=== PATIENT | female | born 1995 | race Caucasian/White ===

== ENCOUNTER → 2016-11-22 | Outpatient (CLI) | payer OTHER ==
--- NOTE | 2016-11-22 21:51 | REP ---
Clinical: Dating and viability. Technique: Transabdominal first trimester obstetrical ultrasound with color Doppler evaluation Findings: Single live early intrauterine is appreciated. Gestational sac with yolk sac and pole identified. Brogden-rump length of 7 mm corresponds to 6 weeks 4 days gestational age with estimated date of delivery 07/14/2017 . heart rate equals 118 beats per minute. No gross abnormalities are identified. Impression: Single live early intrauterine at 6 weeks 4 days gestational age. Complete anatomical assessment should be performed and 19-20 weeks. Signed by Cb Hall MD 11/22/2016 09:42 P
== END ==
LOC: M WHC 07:51
PROVIDERS: ATTEND Nurse Practitioner Women's Health
DX: Z32.01 Encounter for pregnancy test, result positive (principal); Z3A.01 Less than 8 weeks gestation of pregnancy

== ENCOUNTER → 2016-12-12 | Outpatient (CLI) | payer OTHER ==
[2016-12-12 14:49] LABS: BASO % 0.4 % (0.0-1.0); EOS # 0.2 K/mm3 (0.0-0.50); EOS % 3.1 % (0.0-3.0); LARGE UNSTAINED CELL # 0.1 K/mm3 (0.0-0.4); LARGE UNSTAINED CELL % 1.2 % (0.0-4.0); LYMPH # 1.7 K/mm3 (1.5-6.5); MEAN CORPUSCULAR HEMOGLOBIN 29.7 pg (27.0-33.0); MEAN CORPUSCULAR HGB CONC 33.9 g/dl (32.0-36.5); MEAN CORPUSCULAR VOLUME 87.7 fl (80.0-96.0); MONO # 0.3 K/mm3 (0.0-0.8); MONO % 3.9 % (0.0-5.0); NEUTROPHILS # 5.4 K/mm3 (1.8-7.7); NEUTROPHILS % 70.4 % (36.0-66.0); PLATELET COUNT, AUTOMATED 295 k/mm3 (150-450); RED CELL DISTRIBUTION WIDTH 13.1 % (11.5-14.5); WHITE BLOOD COUNT 7.7 K/mm3 (4.0-10.0)
[2016-12-13 09:59] LABS: HBsAg Prenatal NEGATIVE (NEGATIVE)
== END ==
LOC: M SMT 10:23
PROVIDERS: ATTEND Specialist
DX: Z34.81 Encounter for supervision of other normal pregnancy, first trimester (principal)

== ENCOUNTER → 2017-02-08 | Outpatient (CLI) | payer OTHER ==
[~2017-02-08] MED LIST: PRENTAB9 PO
== END ==
LOC: M SMT 13:06
PROVIDERS: ATTEND Advanced Practice Midwife
DX: Z31.438 Encounter for other genetic testing of female for procreative management (principal)

== ENCOUNTER → 2017-02-13 | Outpatient (CLI) | payer OTHER ==
--- NOTE | 2017-02-13 14:28 | REP ---
OB ULTRASOUND: Real-time sonographic evaluation of gravid uterus performed. There is a single living intrauterine gestation, estimated gestational age 18 weeks 3 days based on the first ultrasound with EDC 07/14/2017. Today's measurements indicate appropriate growth. BPD 43 mm = 19 weeks 0 days, 66th percentile HC 157 mm = 18 weeks 4 days, 55th percentile AC 125 mm = 18 weeks 1 day, 43rd percentile Femur length 31 mm = 19 weeks 5 days, 82nd percentile HC/AC ratio 1.26, within normal range. Estimated weight 261 grams, 62nd percentile. Cervix is closed and measures 3.1 cm in length. heart rate 144 beats per minute. SEEN/GROSSLY UNREMARKABLE Lateral ventricles Yes Posterior fossa Yes Upper lip Yes Four-chamber heart Yes LVOT No RVOT No Stomach Yes Cord insertion Yes Three vessel cord Yes Kidneys Yes Bladder Yes Spine No position: Vertex. Placenta: Anterior and grade 0 with no previa or abruption. Amniotic fluid: Within normal limits. Signed by Jorge Luis Tinsley MD 02/13/2017 04:46 P
== END ==
LOC: M SMT 12:55
PROVIDERS: ATTEND Advanced Practice Midwife
DX: Z34.82 Encounter for supervision of other normal pregnancy, second trimester (principal)

== ENCOUNTER → 2017-03-26 | Outpatient (CLI) | payer OTHER ==
--- NOTE | 2017-03-26 16:41 | REP ---
OB ULTRASOUND: Real-time sonographic evaluation of the gravid uterus is performed. There is a single living intrauterine gestation. The estimated gestational age is 24 weeks 2 days. EDC 07/14/2017. Today's measurements indicate appropriate growth. BPD 61 mm = 24 weeks 5 days, at the 58th percentile. HC 228 mm = 24 weeks 6 days, at the 61st percentile. AC 208 mm = 25 weeks 2 day, at the 71st percentile. Femur length 43 mm = 24 weeks 1 days, at the 46th percentile. HC/AC ratio 1.10 within normal range. Estimated weight 737 grams, 58th percentile. Cervix is closed and measures 3.6 cm in length. heart rate 136 beats per minute. SEEN/GROSSLY UNREMARKABLE Lateral ventricles Yes Posterior fossa Yes Upper lip Yes Four-chamber heart Yes LVOT Yes RVOT Yes Stomach Yes Cord insertion Yes Three vessel cord Yes Kidneys Yes Bladder Yes Spine Yes position: Vertex. Placenta: Anterior and grade 0 with no previa or abruption. Amniotic fluid: Within normal limits. Signed by Jorge Luis Tinsley MD 03/27/2017 01:57 P
== END ==
LOC: M SMT 15:06
PROVIDERS: ATTEND Obstetrics & Gynecology
DX: Z34.83 Encounter for supervision of other normal pregnancy, third trimester (principal); Z3A.24 24 weeks gestation of pregnancy

== ENCOUNTER → 2017-05-15 | Outpatient (CLI) | payer OTHER ==
--- NOTE | 2017-05-16 09:03 | REP ---
Obstetric sonography: History: Supervision of for biophysical profile. Gestational diabetes. Findings: Scanning through the gravid uterus demonstrates a viable single intrauterine gestation in a cephalic lie. motion is identified and heart rate is recorded at 136 beats per minute. An anterior grade 0 placenta is seen without evidence of previa or abruption. Amniotic fluid is subjectively normal. Closed cervical length is 3.6 cm viewed transabdominally. No extrauterine abnormality is observed. There has been appropriate interval growth. The following anatomic structures are identified today and felt to be unremarkable: cranium, cavum, face and profile, lungs, four-chamber heart, diaphragm, left-sided stomach, three-vessel cord, kidneys and bladder. Biometry chart: BPD 8.1 cm 32 weeks 4 days Head circumference 29.7 cm 32 week 6 days Abdominal circumference 28.2 cm 32 weeks 1 day Femur length 6.3 cm 32 weeks 3 days Humeral length 5.6 cm 32 weeks 2 days HC/AC ratio 1.05. Cephalic index normal 0.76. Estimated weight 1962 grams, 4 pounds 5 ounces, 62nd percentile for 31 weeks 3 days. Biophysical profile score 8 out of a possible 8. Amniotic fluid index 13.1 cm. SD ratio in the umbilical cord artery by Doppler normal 2.99. Impression: Viable single intrauterine gestation at 32 weeks 3 days by today's composite criteria. Expected gestational age estimate based on prior sonography is 31 weeks 3 days. LEONOR by prior sonography July 14, 2017. Signed by Jaiden Ramos MD 05/16/2017 10:11 A
== END ==
LOC: M RAD 17:13
PROVIDERS: ATTEND Advanced Practice Midwife
DX: O24.415 Gestational diabetes mellitus in pregnancy, controlled by oral hypoglycemic drugs (principal); Z3A.32 32 weeks gestation of pregnancy

== ENCOUNTER → 2017-05-24 | Outpatient (CLI) | payer OTHER ==
--- NOTE | 2017-05-24 12:38 | REP ---
Clinical: well-being . Comparison: 05/15/2017 . Findings: Examination demonstrates a single live intrauterine in cephalic presentation. motion is identified by technologist. Placenta is noted anterior fundal and grade one without evidence for placenta previa or abruption. Amniotic fluid volume is normal. Nuchal cord cannot be excluded. Gestational age by LMP 36 weeks 6 days with LEONOR 06/15/2017 . Gestational age by first US 32 weeks 5 days with LEONOR 07/14/2017 . FHR equals 147 beats per minute. Amniotic fluid index equals 12.5 cm (8.4 - 24.4) Umbilical cord SD ratio equals 2.69 (2.13 - 3.13). Impression: Single live intrauterine in cephalic presentation. motion is appreciated and amniotic fluid volume is within normal limits. Signed by Cb Hall MD 05/24/2017 12:29 P
== END ==
LOC: M SMT 10:33
PROVIDERS: ATTEND Advanced Practice Midwife
DX: O24.415 Gestational diabetes mellitus in pregnancy, controlled by oral hypoglycemic drugs (principal); Z3A.33 33 weeks gestation of pregnancy

== ENCOUNTER 2017-05-28 20:14 | Outpatient (CLI) | payer OTHER ==
[~2017-05-28] VITALS: Ht 160 cm; Wt 117.0 kg
[2017-05-28 20:38] VITALS: BP 131/60
== END 2017-05-28 22:12 | disposition home or self-care (01) ==
LOC: M LDO 20:14
PROVIDERS: ATTEND Advanced Practice Midwife
DX: O47.03 False labor before 37 completed weeks of gestation, third trimester (principal); O99.213 Obesity complicating pregnancy, third trimester; O24.913 Unspecified diabetes mellitus in pregnancy, third trimester; O99.340 Other mental disorders complicating pregnancy, unspecified trimester; F41.9 Anxiety disorder, unspecified; F32.9 Major depressive disorder, single episode, unspecified; Z3A.33 33 weeks gestation of pregnancy

== ENCOUNTER → 2017-05-31 | Outpatient (CLI) | payer OTHER ==
--- NOTE | 2017-05-31 20:00 | REP ---
LIMITED OBSTETRICAL ULTRASOUND: CLINICAL: well being and biophysical profile. COMPARISON: 05/24/2017 Ultrasound examination demonstrates a single live advanced gestation in cephalic presentation. motion was identified by technologist. Placenta is noted anteriorly and grade 1 without evidence for placenta previa or abruption. Amniotic fluid volume is within normal limits. Nuchal cord cannot be excluded. Gestational age by first ultrasound 33 weeks 5 days with estimated date of delivery 07/14/2017. FHR equals 136 beats per minute. Biophysical profile equals 8 out of 8. Amniotic fluid index equals 7.9 cm (8.2 - 24.7). Umbilical cord S/D ratio equals 2.89 (2.00 - 3.00). IMPRESSION: Single live advanced gestation in cephalic presentation. Biophysical profile score equals 8 out of 8. Amniotic fluid volume normal. Nuchal cord cannot be excluded. Signed by Cb Hall MD 06/01/2017 08:13 A
== END ==
LOC: M SMT 12:03
PROVIDERS: ATTEND Advanced Practice Midwife
DX: O24.415 Gestational diabetes mellitus in pregnancy, controlled by oral hypoglycemic drugs (principal); Z3A.33 33 weeks gestation of pregnancy

== ENCOUNTER → 2017-06-08 | Outpatient (CLI) | payer OTHER ==
--- NOTE | 2017-06-08 15:08 | REP ---
OB ULTRASOUND: Real-time sonographic evaluation of the gravid uterus is performed. There is a single living intrauterine gestation, estimated gestational age 34 weeks 6 days, EDC 07/14/2017. Today's measurements indicate appropriate growth. BPD 89 mm = 35 weeks 6 days, 64th percentile HC 324 mm = 36 weeks 5 days, 80th percentile AC 323 mm = 36 weeks 1 days, 70th percentile FL 68 mm = 34 weeks 6 days, 50th percentile HC/AC ratio 1.0, within normal range. Estimated weight 2791 grams, 66th percentile. heart rate 153 beats per minute. Amniotic fluid within normal limits, RADHA 8.7 with a normal range of 7.9 and 24.9. Biophysical profile score 8 out of 8. S/D ratio 2.61, within normal range. RI 0.62, within normal range. Four chamber heart and stomach are visualized. position vertex. Placenta anterior and grade 2 with no previa or abruption. Signed by Jorge Luis Tinsley MD 06/08/2017 05:01 P
== END ==
LOC: M SMT 10:41
PROVIDERS: ATTEND Advanced Practice Midwife
DX: O24.415 Gestational diabetes mellitus in pregnancy, controlled by oral hypoglycemic drugs (principal); Z3A.34 34 weeks gestation of pregnancy

== ENCOUNTER → 2017-06-10 | Outpatient (CLI) | payer OTHER ==
[2017-06-10 09:45] LABS: MEAN CORPUSCULAR HEMOGLOBIN 28.4 pg (27.0-33.0); MEAN CORPUSCULAR HGB CONC 32.9 g/dl (32.0-36.5); MEAN CORPUSCULAR VOLUME 86.5 fl (80.0-96.0); PLATELET COUNT, AUTOMATED 259 10^3/uL (150-450); RED CELL DISTRIBUTION WIDTH 13.7 % (11.5-14.5); WHITE BLOOD COUNT 8.9 10^3/uL (4.0-10.0)
[2017-06-10 10:09] LABS: CREATININE, SERUM 0.8 MG/DL (0.6-1.0)
[2017-06-10 10:10] LABS: ALT/SGPT 15 U/L (12-78); AST/SGOT 14 U/L (7-37); BILIRUBIN,TOTAL 0.3 MG/DL (0.2-1.0); CREATININE FOR GFR 0.71 MG/DL (0.55-1.02); GLOMERULAR FILTRATION RATE > 60.0 (>60); URIC ACID 5.9 MG/DL (2.6-6.0)
[2017-06-10 10:17] LABS: CREATININE CLEARANCE, URINE 77.5 ML/MIN (75-115)
== END ==
LOC: M LAB 08:42
PROVIDERS: ATTEND Advanced Practice Midwife
DX: O16.3 Unspecified maternal hypertension, third trimester (principal); Z3A.00 Weeks of gestation of pregnancy not specified

== ENCOUNTER → 2017-06-11 | Outpatient (REF) | payer OTHER | LOC: M LAB REF 17:21 | PROVIDERS: ATTEND Advanced Practice Midwife | DX: O24.415 Gestational diabetes mellitus in pregnancy, controlled by oral hypoglycemic drugs (principal) ==

== ENCOUNTER → 2017-06-15 | Outpatient (CLI) | payer OTHER ==
--- NOTE | 2017-06-15 16:02 | REP ---
OB ULTRASOUND, BIOPHYSICAL PROFILE: Real-time sonographic evaluation of gravid uterus is performed. There is a single living intrauterine gestation. The estimated gestational age is 35-weeks 6 days based on the first ultrasound EDC 07/14/2017. heart rate 144 beats per minute. Amniotic fluid within normal limits. RADHA 12.1 within normal range of 7.7-24.9. Biophysical profile score 8/8. SD ratio 2.47 within normal range. RI 0.59 within normal range. Stomach and bladder are visualized. Kidneys are visualized and are grossly unremarkable. position vertex. Placenta anterior and grade 1 with no previa or abruption. Unreviewed
== END ==
LOC: M SMT 13:39
PROVIDERS: ATTEND Advanced Practice Midwife
DX: O24.415 Gestational diabetes mellitus in pregnancy, controlled by oral hypoglycemic drugs (principal); Z3A.36 36 weeks gestation of pregnancy

== ENCOUNTER → 2017-06-20 | Outpatient (CLI) | payer OTHER | LOC: M SMT 11:39 | DX: O24.415 Gestational diabetes mellitus in pregnancy, controlled by oral hypoglycemic drugs (principal) | CPT/HCPCS: 76819 ==

== ENCOUNTER 2017-06-22 05:35 | Inpatient (IN) | payer OTHER ==
[2017-06-22 06:39] LABS: HEMATOCRIT 36.5 % (36.0-47.0); HEMOGLOBIN 12.2 g/dl (12.0-16.0); MEAN CORPUSCULAR HGB CONC 33.4 g/dl (32.0-36.5); MEAN CORPUSCULAR VOLUME 86.7 fl (80.0-96.0); PLATELET COUNT, AUTOMATED 253 10^3/uL (150-450); RED BLOOD COUNT 4.21 10^6/uL (4.00-5.40); RED CELL DISTRIBUTION WIDTH 13.8 % (11.5-14.5); WHITE BLOOD COUNT 8.3 10^3/uL (4.0-10.0)
[2017-06-22 06:51] LABS: AMPHETAMINES URINE REFLEX NEGATIVE (NEGATIVE); BARBITURATES URINE REFLEX NEGATIVE (NEGATIVE); BENZODIAZEPINES URINE REFLEX NEGATIVE (NEGATIVE); CANNABINOIDS URINE REFLEX NEGATIVE (NEGATIVE); COCAINE METABOLITE URINE REFLE NEGATIVE (NEGATIVE); METHADONE URINE REFLEX NEGATIVE (NEGATIVE); OPIATES URINE REFLEX NEGATIVE (NEGATIVE); PHENCYCLIDINE URINE REFLEX NEGATIVE (NEGATIVE)
[2017-06-22] MEDS: miSOPROStol 50 MCG 1/2 TAB (S0191) SL ×3 (07:22→16:02)
[2017-06-22] MEDS ORDERED: hydrOXYzine 50 MG TAB PO (21:30)
[2017-06-23] MEDS: LR 1,000 ML IV ×3 (11:42→16:59)
[2017-06-23] MEDS: OXYTOCIN DRIP 30 UNITS in APPROPRIATE DILUENT 1 EA IV (11:42)
[2017-06-23] MEDS: PROMETHAZINE INJ 25 MG/ML VIAL (J2550) IV (16:58)
[2017-06-23] MEDS: BUTORPHANOL 2 MG/ML INJ (J0595) IV (16:58)
[2017-06-24] MEDS ORDERED: BUTORPHANOL 2 MG/ML INJ (J0595) As Ordered (03:10)
[2017-06-24] MEDS: BUTORPHANOL 2 MG/ML INJ (J0595) IV ×3 (03:45→17:26)
[2017-06-24] MEDS ORDERED: LABETALOL HCL 100 MG/20 ML VIAL As Ordered (05:21)
[2017-06-24 08:42] LABS: BASO % 0.2 % (0.0-1.0); EOS # 0.1 10^3/uL (0.0-0.50); EOS % 0.4 % (0.0-3.0); HEMATOCRIT 36.2 % (36.0-47.0); HEMOGLOBIN 12.2 g/dl (12.0-16.0); IMMATURE GRANULOCYTE # 0.1 10^3/uL (0-0); IMMATURE GRANULOCYTE % 0.6 % (0-0); LYMPH # 0.9 10^3/uL (1.5-6.5); LYMPH % 7.3 % (24.0-44.0); MEAN CORPUSCULAR HEMOGLOBIN 29.1 pg (27.0-33.0); MEAN CORPUSCULAR HGB CONC 33.7 g/dl (32.0-36.5); MEAN CORPUSCULAR VOLUME 86.4 fl (80.0-96.0); MONO # 0.5 10^3/uL (0.0-0.8); MONO % 3.6 % (0.0-5.0); NEUTROPHILS # 10.9 10^3/uL (1.8-7.7); NEUTROPHILS % 87.9 % (36.0-66.0); PLATELET COUNT, AUTOMATED 255 10^3/uL (150-450); RED BLOOD COUNT 4.19 10^6/uL (4.00-5.40); RED CELL DISTRIBUTION WIDTH 13.7 % (11.5-14.5); WHITE BLOOD COUNT 12.4 10^3/uL (4.0-10.0)
[2017-06-24] MEDS: PROMETHAZINE INJ 25 MG/ML VIAL (J2550) IV ×2 (08:51→17:26)
[2017-06-24 09:01] LABS: ALT/SGPT 15 U/L (12-78); AST/SGOT 18 U/L (7-37); BILIRUBIN,TOTAL 0.3 MG/DL (0.2-1.0); CREATININE FOR GFR 0.81 MG/DL (0.55-1.02); GLOMERULAR FILTRATION RATE > 60.0 (>60); LDH LACTATE DEHYDROGENASE 209 U/L (84-246); URIC ACID 7.3 MG/DL (2.6-6.0)
[2017-06-24 11:14] LABS: GLUCOSE,RANDOM 111 MG/DL (LESS THAN 200)
[2017-06-24] MEDS ORDERED: MAGNESIUM SULFATE 4% INJ 20GM/500ML (40MG/ML) (J3475) As Ordered (12:00)
[2017-06-24] MEDS ORDERED: OXYTOCIN 30 UNITS IN 0.9% NaCl 500ML IV BAG (J2590) As Ordered (12:00)
[2017-06-24 13:01] LABS: CORD GAS ABE A -8.5; CORD GAS O2 SAT A 58.4 %; CORD GAS PCO2 A 52.6 mmHg; CORD GAS PH A 7.198 UNITS; CORD GAS PO2 A 28.1 mmHg; CORD GAS SBC A 16.9 MEQ/L; CORD GAS TCO2 A 21.6 MEQ/L
[2017-06-24] MEDS ORDERED: DIBUCAINE 1% OINTMENT 30GM TOP (13:15)
[2017-06-24] MEDS ORDERED: DOCUSATE SODIUM 100 MG CAP PO (13:15)
[2017-06-24] MEDS ORDERED: PROMETHAZINE 25 MG TAB PO (13:15)
[2017-06-24] MEDS ORDERED: ONDANSETRON 4MG/2ML VIAL (J2405) IV (13:15)
[2017-06-24] MEDS: PRENATAL VITAMINS CHEWABLE TABLET PO (17:27)
[2017-06-24] MEDS: OXYTOCIN DRIP 30 UNITS in APPROPRIATE DILUENT 1 EA IV (17:28)
[2017-06-24] MEDS: LR 1,000 ML IV (17:28)
[2017-06-25] MEDS: RHOGAM 300 MCG (1500 IU) INJ (J2790) IM (07:16)
[2017-06-25] MEDS: MEASLES,MUMPS,RUBELLA VACCINE INJ (MMR-II) (90707) SC (07:17)
[2017-06-25] MEDS: PRENATAL VITAMINS CHEWABLE TABLET PO (08:10)
[2017-06-25] MEDS: IBUPROFEN 800 MG TAB PO (20:51)
[2017-06-25] MEDS: ACETAMINOPHEN 500 MG TAB PO (20:52)
[2017-06-26] MEDS: PRENATAL VITAMINS CHEWABLE TABLET PO (08:02)
== END 2017-06-26 17:30 | disposition home or self-care (01) | DRG 560 ==
LOC: M LDI 05:35 → M OBS 06-24 16:42
PROVIDERS: Specialist
PROC: 3E0DXGC Introduction of Other Therapeutic Substance into Mouth and Pharynx, External Approach (ICD-10-PCS; 2017-06-22)
PROC: 10E0XZZ Delivery of Products of Conception, External Approach (ICD-10-PCS; principal; 2017-06-24)
DX: O13.4 Gestational [pregnancy-induced] hypertension without significant proteinuria, complicating childbirth (principal); O99.344 Other mental disorders complicating childbirth; F32.9 Major depressive disorder, single episode, unspecified; O24.425 Gestational diabetes mellitus in childbirth, controlled by oral hypoglycemic drugs; Z37.0 Single live birth; Z3A.37 37 weeks gestation of pregnancy; F41.9 Anxiety disorder, unspecified; F17.210 Nicotine dependence, cigarettes, uncomplicated; O99.334 Smoking (tobacco) complicating childbirth; Z88.0 Allergy status to penicillin; Z88.8 Allergy status to other drugs, medicaments and biological substances

== ENCOUNTER → 2018-09-25 | Outpatient (REF) | payer OTHER ==
[~2018-09-25] MED LIST changes: +IBUP-1022 PO; +MAPA500T2 PO
[2018-09-25 19:42] LABS: CHLAMYDIA DNA AMPLIFICATION NEGATIVE (NEGATIVE); GC DNA AMPLIFICATION NEGATIVE (NEGATIVE)
== END ==
LOC: M LAB REF 17:17
PROVIDERS: ATTEND Obstetrics & Gynecology
DX: Z12.4 Encounter for screening for malignant neoplasm of cervix (principal)

== ENCOUNTER → 2019-07-16 | Outpatient (CLI) | payer OTHER ==
--- NOTE | 2019-07-17 01:03 | REP ---
Clinical: Pain with history of prior trauma Technique: AP, lateral, bilateral oblique and sunrise views right knee . Findings: There is a chronic corticated loose bodies/fracture fragment in the anterior midline of the tibiofemoral joint space measuring roughly 17 mm which is likely related to old trauma, continued pain, and possible decreased range of motion. The tibial plateau, patellofemoral joint space, and osseous structures including visualized femur, patella, and proximal tibia / fibula are otherwise relatively normal in appearance. Impression: Large presumed post traumatic corticated loose body along the anterior tibiofemoral joint space. Electronically Signed by Cb Hall MD 07/17/2019 12:55 A
--- NOTE | 2019-07-17 01:04 | REP ---
Clinical: Right hip pain with history of trauma. Technique: Neutral and frog lateral views of the right hip. Findings: Osseous structures, joint spaces, and surrounding soft tissues are normal for age. No acute fracture dislocation. No evidence for old injury. Impression: Normal right hip radiographs. Electronically Signed by Cb Hall MD 07/17/2019 12:56 A
== END ==
LOC: M CLY 15:37
PROVIDERS: ATTEND Family Medicine
DX: M25.561 Pain in right knee (principal); M25.551 Pain in right hip

== ENCOUNTER → 2019-07-17 | Outpatient (CLI) | payer OTHER ==
[2019-07-17 12:18] LABS: ALBUMIN 4.1 GM/DL (3.2-5.2); ALT/SGPT 29 U/L (12-78); BILIRUBIN,TOTAL 0.6 MG/DL (0.2-1.0); BLOOD UREA NITROGEN 12 MG/DL (7-18); CALCIUM LEVEL 9.1 MG/DL (8.5-10.1); CARBON DIOXIDE LEVEL 26 MEQ/L (21-32); CHLORIDE LEVEL 105 MEQ/L (98-107); CHOLESTEROL LEVEL 241 MG/DL (<200); CHOLESTEROL RISK RATIO 6.342 (<5); CREATININE FOR GFR 0.81 MG/DL (0.55-1.30); GLOMERULAR FILTRATION RATE > 60.0 (>60); GLUCOSE, FASTING 88 MG/DL (70-100); HDL CHOLESTEROL 38 MG/DL (>40); NON-HDL-C 203 MG/DL; POTASSIUM SERUM 4.3 MEQ/L (3.5-5.1); SODIUM LEVEL 140 MEQ/L (136-145); TRIGLYCERIDES LEVEL 443 MG/DL (<150)
== END ==
LOC: M LAB 10:43
PROVIDERS: ATTEND Family Medicine
DX: Z68.42 Body mass index [BMI] 45.0-49.9, adult (principal)

== ENCOUNTER → 2020-01-15 | Outpatient (REF) | payer OTHER | LOC: M SFHCWAGY 14:15 | PROVIDERS: ATTEND Nurse Practitioner Family | DX: Z12.4 Encounter for screening for malignant neoplasm of cervix (principal) ==

== ENCOUNTER → 2021-08-16 | Outpatient (CLI) | payer OTHER ==
[2021-08-16 15:34] LABS: HEMOGLOBIN 13.1 g/dl (12.0-15.5); MEAN CORPUSCULAR HEMOGLOBIN 29.6 pg (27.0-33.0); MEAN CORPUSCULAR HGB CONC 33.6 g/dl (32.0-36.5); MEAN CORPUSCULAR VOLUME 88.2 fl (80.0-96.0); PLATELET COUNT, AUTOMATED 279 10^3/uL (150-450); RED BLOOD COUNT 4.42 10^6/uL (4.00-5.40)
[2021-08-16 16:12] LABS: ALT/SGPT 23 U/L (12-78); BILIRUBIN,TOTAL 0.4 MG/DL (0.2-1.0); GLOMERULAR FILTRATION RATE > 60.0 (>60); GLUCOSE CHALLENGE TEST 1 HOUR 78 MG/DL (LESS THAN 140); LDH LACTATE DEHYDROGENASE 163 U/L (84-246); URIC ACID 3.5 MG/DL (2.6-6.0)
[2021-08-16 16:49] LABS: HIV 1&2 SCREEN CENTAUR NEGATIVE (NEGATIVE)
[2021-08-16 16:54] LABS: GC DNA AMPLIFICATION NEGATIVE (NEGATIVE)
== END ==
LOC: M PLALAB 12:28
PROVIDERS: ATTEND Advanced Practice Midwife
DX: Z34.91 Encounter for supervision of normal pregnancy, unspecified, first trimester (principal); Z3A.00 Weeks of gestation of pregnancy not specified

== ENCOUNTER → 2021-08-22 | Outpatient (CLI) | payer OTHER | LOC: M PLALAB 09:57 | PROVIDERS: ATTEND Advanced Practice Midwife | DX: Z34.91 Encounter for supervision of normal pregnancy, unspecified, first trimester (principal) ==

== ENCOUNTER → 2021-11-01 | Outpatient (CLI) | payer OTHER | LOC: M WHC 13:39 | PROVIDERS: ATTEND Obstetrics & Gynecology | DX: Z36.9 Encounter for antenatal screening, unspecified (principal); Z3A.21 21 weeks gestation of pregnancy ==

== ENCOUNTER → 2021-12-02 | Outpatient (CLI) | payer OTHER | LOC: M WHC 14:21 | PROVIDERS: ATTEND Advanced Practice Midwife | DX: O99.212 Obesity complicating pregnancy, second trimester (principal) ==

== ENCOUNTER → 2022-02-01 | Outpatient (CLI) | payer OTHER ==
[2022-02-01 15:34] LABS: HEMATOCRIT 38.8 % (36.0-47.0); HEMOGLOBIN 12.8 g/dl (12.0-15.5); MEAN CORPUSCULAR HEMOGLOBIN 29.6 pg (27.0-33.0); MEAN CORPUSCULAR VOLUME 89.6 fl (80.0-96.0); PLATELET COUNT, AUTOMATED 227 10^3/uL (150-450); RED BLOOD COUNT 4.33 10^6/uL (4.00-5.40); WHITE BLOOD COUNT 6.8 10^3/uL (4.0-10.0)
== END ==
LOC: M PLALAB 11:35
PROVIDERS: ATTEND Advanced Practice Midwife
DX: O99.212 Obesity complicating pregnancy, second trimester (principal); Z3A.00 Weeks of gestation of pregnancy not specified

== ENCOUNTER → 2022-02-08 | Outpatient (REF) | payer OTHER | LOC: M PLALAB 16:27 | PROVIDERS: ATTEND Advanced Practice Midwife | DX: Z36.85 Encounter for antenatal screening for Streptococcus B (principal) ==

== ENCOUNTER 2022-03-02 14:41 | Inpatient (IN) | payer OTHER ==
[~2022-03-02] VITALS: Ht 160 cm; Wt 115.0 kg
[2022-03-02] VITALS (25 sets, daily range): BP systolic 139–192; BP diastolic 71–101
[2022-03-02] MEDS ORDERED: OMEP40CA4 PO (15:15)
[2022-03-02] MEDS ORDERED: PROP60TA14 PO (15:21)
[2022-03-02] MEDS ORDERED: VENL1TAB35 PO ×2 (15:22→15:25)
[2022-03-02] MEDS ORDERED: PROP80TA PO (15:25)
[2022-03-02] MEDS ORDERED: PRENTAB9 PO (15:25)
[2022-03-02] MEDS ORDERED: OMEP10CASR PO (15:25)
[2022-03-02] MEDS ORDERED: CARBOPROST TROMETHAMINE 250 MCG/ML AMP IM PRN (16:10)
[2022-03-02] MEDS ORDERED: miSOPROStol 50MCG 1/2 TABLET PO ONE ×2 (16:10→21:55)
[2022-03-02] MEDS ORDERED: OXYTOCIN DRIP 30 UNITS in IV 1 EA IV PRN ×4 (16:10)
[2022-03-02] MEDS ORDERED: LIDOCAINE 1% MDV 20ML VIAL INFIL PRN (16:10)
[2022-03-02] MEDS ORDERED: TRANEXAMIC ACID INJection 1,000 MG in NS 100 ML IV PRN (16:10)
[2022-03-02 16:24] LABS: HEMATOCRIT 37.5 % (36.0-47.0); HEMOGLOBIN 12.8 g/dl (12.0-15.5); MEAN CORPUSCULAR HEMOGLOBIN 29.8 pg (27.0-33.0); MEAN CORPUSCULAR HGB CONC 34.1 g/dl (32.0-36.5); MEAN CORPUSCULAR VOLUME 87.4 fl (80.0-96.0); PLATELET COUNT, AUTOMATED 210 10^3/uL (150-450); RED BLOOD COUNT 4.29 10^6/uL (4.00-5.40); WHITE BLOOD COUNT 7.4 10^3/uL (4.0-10.0)
[2022-03-02] MEDS ORDERED: LABETALOL 100MG/20ML VIAL IV STA ×3 (16:33→17:59)
[2022-03-02 17:25] LABS: TOTAL PROTEIN,RANDOM URINE 41.2 MG/DL (0.0-12.0)
[2022-03-03] VITALS (31 sets, daily range): BP systolic 126–217; BP diastolic 62–103
[2022-03-03] MEDS ORDERED: miSOPROStol 50MCG 1/2 TABLET PO ONE ×2 (02:45→11:00)
[2022-03-03] MEDS ORDERED: PROP80CA PO (08:19)
[2022-03-03] MEDS ORDERED: VENL75CA47 PO (08:19)
[2022-03-03] MEDS ORDERED: VENLAFAXINE **XR** 75MG CAPSULE PO SCH (09:00)
[2022-03-03] MEDS ORDERED: OMEPRAZOLE 20MG CAP PO ONE (10:45)
[2022-03-03] MEDS ORDERED: NIFEdipine 10 MG CAP PO ONE (12:35)
[2022-03-03] MEDS ORDERED: LR 1,000 ML IV SCH (15:30)
[2022-03-03] MEDS ORDERED: OXYTOCIN DRIP 30 UNITS in IV 1 EA IV SCH (15:30)
[2022-03-03] MEDS ORDERED: ACETAMINOPHEN 500 MG TAB PO ONE (16:35)
[2022-03-03] MEDS ORDERED: BUTORPHANOL 2 MG/ML INJ (J0595) IV ONE (16:45)
[2022-03-03] MEDS ORDERED: PROMETHAZINE 25MG/ML 1ML VIAL IV ONE (16:45)
[2022-03-03] MEDS ORDERED: NIFEdipine 10 MG CAP PO STA (17:58)
[2022-03-03] MEDS ORDERED: IBUPROFEN 800 MG TAB PO PRN (19:20)
[2022-03-03] MEDS ORDERED: RHOGAM 300 MCG (1500 IU) INJ (J2790) IM SCH (19:20)
[2022-03-03] MEDS ORDERED: METHYLERGONOVINE MALEATE 0.2 MG TAB PO PRN (19:20)
[2022-03-03] MEDS ORDERED: IBUPROFEN 600MG TAB PO PRN (19:20)
[2022-03-03] MEDS ORDERED: DIBUCAINE 1% OINTMENT 30GM TOP PRN (19:20)
[2022-03-03] MEDS ORDERED: ONDANSETRON 4MG 2ML VIAL IV PRN (19:20)
[2022-03-03] MEDS ORDERED: DOCUSATE SODIUM 100MG CAPSULE PO PRN (19:20)
[2022-03-03] MEDS ORDERED: ACETAMINOPHEN 500 MG TAB PO PRN (19:20)
[2022-03-03] MEDS ORDERED: OXYTOCIN DRIP 30 UNITS in IV 1 EA IV ONE (19:20)
[2022-03-03] MEDS: PROPRANOLOL 20 MG TAB PO SCH (21:44)
[2022-03-04 06:00] VITALS: BP 125/72
[2022-03-04] MEDS: PRENATAL VITAMINS CHEWABLE TABLET PO SCH (09:00)
[2022-03-04] MEDS: PROPRANOLOL 20 MG TAB PO SCH ×2 (09:00→21:45)
[2022-03-04 10:12] VITALS: BP 135/72
[2022-03-04] MEDS: VENLAFAXINE **XR** 75MG CAPSULE PO SCH (11:20)
[2022-03-04 18:00] VITALS: BP 164/88
[2022-03-04 19:12] VITALS: BP_SYST 140; BP_SYST 143; BP_DIAS 87; BP_DIAS 88
[2022-03-05 06:00] VITALS: BP 138/82
[2022-03-05] MEDS ORDERED: MEASLES,MUMPS,RUBELLA VACCINE INJ (MMR-II) (90707) SC.IMMUN ONE (09:00)
[2022-03-05] MEDS ORDERED: PROPRANOLOL 20 MG TAB PO SCH (09:00)
[2022-03-05 09:25] VITALS: BP 140/76
[2022-03-05] MEDS: PRENATAL VITAMINS CHEWABLE TABLET PO SCH (09:25)
[2022-03-05] MEDS: VENLAFAXINE **XR** 75MG CAPSULE PO SCH (09:25)
[2022-03-05] MEDS ORDERED: IBUP80TA PO (14:13)
== END 2022-03-05 14:40 | disposition home or self-care (01) | DRG 560 ==
LOC: M LDO 14:41 → M LDI 15:59 → M OBS 03-03 21:21
PROVIDERS: ADMIT Obstetrics & Gynecology; ATTEND Obstetrics & Gynecology
PROC: 10E0XZZ Delivery of Products of Conception, External Approach (ICD-10-PCS; principal; 2022-03-03)
PROC: 3E033VJ Introduction of Other Hormone into Peripheral Vein, Percutaneous Approach (ICD-10-PCS; 2022-03-03)
PROC: 3E0DXGC Introduction of Other Therapeutic Substance into Mouth and Pharynx, External Approach (ICD-10-PCS; 2022-03-03)
DX: O11.3 Pre-existing hypertension with pre-eclampsia, third trimester (principal); O69.82X0 Labor and delivery complicated by other cord entanglement, without compression, not applicable or unspecified; Z37.0 Single live birth; Z3A.39 39 weeks gestation of pregnancy; Z87.891 Personal history of nicotine dependence; Z88.0 Allergy status to penicillin; Z88.6 Allergy status to analgesic agent; Z88.5 Allergy status to narcotic agent; Z79.899 Other long term (current) drug therapy

== ENCOUNTER → 2022-12-18 | Outpatient (CLI) | payer OTHER ==
[~2022-12-18] MED LIST changes: +IBUP80TA PO; +OMEP10CASR PO; +OMEP40CA4 PO; +PROP60TA14 PO; +PROP80CA PO; +PROP80TA PO; +VENL1TAB35 PO; +VENL75CA47 PO
== END ==
LOC: M CLY 15:17
PROVIDERS: ATTEND Nurse Practitioner Family
DX: S89.91XA Unspecified injury of right lower leg, initial encounter (principal)

== ENCOUNTER → 2023-06-26 | Outpatient (REF) | payer OTHER | LOC: M SFHCWAGY 13:29 | PROVIDERS: ATTEND Nurse Practitioner Family | DX: Z12.4 Encounter for screening for malignant neoplasm of cervix (principal) ==